=== PATIENT | female | born 1935 | race Two or more races ===

== ENCOUNTER 2018-04-30 09:41 | Outpatient (CLI) | payer OTHER ==
[~2018-04-30 09:41] MED LIST: HUMULIN N100 U/ML; RANITIDINE HCL75 MG PO; SIMVASTATIN10 MG PO; TENORMIN25 MG PO; ULTRACET PO
== END 2018-04-30 09:46 | disposition home or self-care (01) ==
LOC: SONOGRAMA 09:41
DX: E04.1 Nontoxic single thyroid nodule (principal)

== ENCOUNTER 2020-12-09 10:52 | Outpatient (CLI) | payer OTHER | END 2020-12-09 10:58 | disposition home or self-care (01) | LOC: SONOGRAMA 10:52 | PROVIDERS: ATTEND Pathology Anatomic Pathology & Clinical Pathology | DX: D34 Benign neoplasm of thyroid gland (principal); E04.2 Nontoxic multinodular goiter; E07.89 Other specified disorders of thyroid; E04.8 Other specified nontoxic goiter ==